=== PATIENT | female | born 1930 | race Caucasian/White ===

== ENCOUNTER 2018-04-05 09:35 | Emergency (ER) | payer OTHER ==
--- NOTE | 2018-04-05 09:47 | EDPHY ---
General Time Seen by Provider: 04/05/18 09:40 Narrative: CHIEF COMPLAINT: Back pain HISTORY OF PRESENT ILLNESS: Patient arrives by EMS and is seen at time of arrival. EMS reports that they were activated due to complaints of back pain, but she has no complaints of any kind at this time. At time of arrival her caregiver was not present, but after arrival to cardiac care unit nurse is able to provide the following information. She states the patient awoke this morning complaining of some low back pain with a caregiver attempted to ambulate the patient out of bed. She was pointing to her low back and left hip. Caregiver reports that they are somewhat with her 24 hr a day due to her advanced dementia, but that sometimes she may get out of bed. The patient was complaining of pain but was able to ambulate to the EMS bed. At time examination now, she denies any pain of any kind. She denies falling or injuries. She has no abdominal pain. No chest pain, cough or recent complaints of illness. The caregiver states that there is no other concern other than the back pain and difficulty ambulating. No other associated complaints or modifying factors. REVIEW OF SYSTEMS: Ten systems reviewed and are negative unless otherwise noted in the HPI PCP: Dr. Stevens PAST MEDICAL HISTORY: Dementia, arthritis PAST SURGICAL HISTORY: No recent surgeries SOCIAL HISTORY: Nonsmoker. Lives at home with her family and caregivers. FAMILY HISTORY: Unobtainable EXAMINATION General Appearance: Alert, no distress. Well-developed well-nourished. Head: normocephalic, atraumatic. No Curtis sign. No raccoon eyes. Eyes: Bilateral arcus senilis. Pupils equal and round, no conjunctival pallor or injection. EOM symmetric. No nystagmus or dysconjugate gaze ENT, Mouth: Mucous membranes moist. Airway patent Neck: Normal inspection, supple, non-tender but no crepitus, step-off or deformity. Respiratory: Lungs are clear to auscultation no wheezing rhonchi or crackles Cardiovascular: Regular rate and rhythm no murmur Gastrointestinal: Abdomen is soft and nontender. No distention. No tympany. No rigidity. No guarding. Benign abdominal examination Back: No midline tenderness, crepitus, step-off or deformity. Neurological: Alert to baseline. Nonfocal with symmetric strength of all 4 extremities. Patellar reflexes symmetric. Skin: Warm and dry, no rash. No laceration, cellulitis or purulence Extremities: Nontender, no pedal edema. Symmetric range of motion all 4 extremities. Psychiatric: Mood and affect normal DIFFERENTIAL DIAGNOSES: Including but not limited to dementia, acute back pain, chronic back pain MDM: 9:45 a.m. Reports of back pain with no complaints of pain at this time. The patient does have baseline dementia, her history is very unreliable. Her caregiver is reportedly on the way. Thus I will discuss with them when they arrive. She is in no acute distress. Her vital signs are within normal limits. 9:50 a.m. Caregiver is now bedside. She reports that the patient was indicating pain in her low back and left hip early this morning when she was getting her out of bed. We have ambulated the patient the room with a caregiver bedside and says this is significantly better than earlier. While ambulating the patient, she has no complaints of pain anywhere. I have ordered x-rays of the areas of concern of the caregiver. I discussed with Dr. Pope 11:20 a.m. X-rays are negative for any acute findings. There are chronic changes as noted the reports. I discussed these findings with the caregiver the patient. Is also the daughter at bedside now. All the room were comfortable with patient going home after successful ambulation without difficulty emergency depart. We discussed the possibility and possibility of muscle spasm for this, and that I am not comfortable prescribing these medications given the patient's complex scenario. I requested that they discussed this with the primary care physician for possible medications as the primary care physician knows the patient better. They are more than comfortable this plan and she is discharged home stable condition. SUPERVISION: Patient was independently examined, but I discussed the case with my secondary supervising physician Dr. Pope - Diagnostics Imaging Results: Imaging Impressions Hip X-Ray 04/05/18 09:53 Impression: Scoliosis raises the possibility of muscle spasm. No fracture. 2. Bilateral Hips , 2 views History: Pain post possible fall. Findings: The femoral heads are well rounded and normally located. No fracture or dislocation is identified. The pelvic ring is intact. The SI joints and pubic symphysis are normally aligned. There is mild hypertrophic change of each greater trochanter. Impression: Nothing acute identified. Lumbar Spine X-Ray 04/05/18 09:53 Impression: Scoliosis raises the possibility of muscle spasm. No fracture. 2. Bilateral Hips , 2 views History: Pain post possible fall. Findings: The femoral heads are well rounded and normally located. No fracture or dislocation is identified. The pelvic ring is intact. The SI joints and pubic symphysis are normally aligned. There is mild hypertrophic change of each greater trochanter. Impression: Nothing acute identified. - History Smoking Status: Never smoked - Objective Vital Signs: Initial Vital Signs Temperature (C) 98.1 F 04/05/18 09:39 Heart Rate 72 04/05/18 09:39 Respiratory Rate 18 04/05/18 09:39 Blood Pressure 155/74 H 04/05/18 09:39 O2 Sat (%) 96 04/05/18 09:39 O2 Delivery Mode Room Air Allergies/Adverse Reactions: No Known Allergies Allergy (Verified 04/05/18 09:57) Home Medications: Medication Instructions Recorded Calcium Carb W/Vit D [Calcium Carb 500 mg PO DAILY 11/11/15 W/Vit D 500/200 (*)] Escitalopram Oxalate [Lexapro] 20 mg PO DAILY 11/11/15 Exelon 13.3mg/24 Hour 1 patch TP DAILY 11/11/15 Levothyroxine [Synthroid 50 mcg 50 mcg PO DAILY06 11/11/15 (*)] Phospserin/[place]-3/Dha/Epa 1 each PO DAILY 11/11/15 [Vayacog Capsules] QUEtiapine FUMARATE [Seroquel 25 25 mg PO HS 11/11/15 mg (*)] Acetaminophen [Tylenol 325mg (*)] 650 mg PO Q4 PRN #0 tab 11/12/15 Departure - Departure Disposition: Home, Routine, Self-Care Clinical Impression: Low back pain Qualifiers: Chronicity: acute Back pain laterality: left Sciatica presence: without sciatica Qualified Code(s): M54.5 - Low back pain Condition: Good Instructions: Acute Low Back Pain (ED) Additional Instructions: 1. Contact primary care physician to discuss further medications as needed beyond Tylenol 2. Return here for any persistent back pain, radiating back pain, numbness, tingling, weakness, difficulty having a bowel movement or controlling bowel movements, fever Referrals: Lachelle Stevens MD [Primary Care Provider] - As per Instructions
[2018-04-05 11:36] VITALS: BP 145/87
== END 2018-04-05 11:36 | disposition home or self-care (01) ==
LOC: EDUNIT#
DX: M54.5 Low back pain (principal)